=== PATIENT | female | born 1975 | race Hispanic/Latino ===

== ENCOUNTER → 2018-03-13 | Outpatient (CLI) | payer SELFPAY | END | disposition home or self-care (01) | LOC: RAH 14:03 | PROVIDERS: ATTEND Obstetrics & Gynecology | DX: N60.02 Solitary cyst of left breast (principal); N60.01 Solitary cyst of right breast | CPT/HCPCS: 76641; 77066 ==

== ENCOUNTER → 2018-04-03 | Outpatient (CLI) | payer OTHER | END | disposition home or self-care (01) | LOC: OIH 12:40 | PROVIDERS: ATTEND Family Medicine | DX: Z13.6 Encounter for screening for cardiovascular disorders (principal) | CPT/HCPCS: 75571 ==

== ENCOUNTER 2021-12-11 09:47 | Emergency (ER) | payer BC ==
[~2021-12-11] VITALS: Ht 175.3 cm; Wt 65.8 kg
[2021-12-11 10:25] LABS: APPEARANCE,URINE CLEAR (CLEAR); BILIRUBIN,URINE NEGATIVE (NEGATIVE); COLOR,URINE LIGHT-YELLOW (YELLOW); GLUCOSE, URINE (UA) NEGATIVE (NEGATIVE); KETONES,URINE NEGATIVE (NEGATIVE); LEUKOCYTE ESTERASE ,URINE 25 Leu/uL (NEGATIVE); NITRATE,URINE NEGATIVE (NEGATIVE); OCCULT BLOOD,URINE SMALL (NEGATIVE); PROTEIN,URINE NEGATIVE (NEGATIVE); UROBILINOGEN,URINE 0.2 mg/dL (0.2-1.0)
[2021-12-11] MEDS ORDERED: FAMOTIDINE 20MG TAB PO ONE (10:30)
[2021-12-11] MEDS ORDERED: IBUPROFEN 800 MG TAB PO ONE (10:30)
[2021-12-11 10:40] LABS: HCG,QUALITATIVE URINE NEGATIVE (NEGATIVE)
[2021-12-11 10:59] LABS: BACTERIA,URINE RARE /HPF (None Seen); MUCUS,URINE RARE LPF (None Seen); SQUAMOUS EPITHELIAL CELL,UR FEW /HPF (0-2)
[2021-12-11] MEDS ORDERED: CEFTRIAXONE 2GM VIAL IJ ONE (11:30)
[2021-12-11 12:30] VITALS: BP 114/47
== END 2021-12-11 12:31 | disposition home or self-care (01) ==
LOC: EDH 09:47
DX: N39.0 Urinary tract infection, site not specified (principal); Z79.1 Long term (current) use of non-steroidal anti-inflammatories (NSAID); Z90.49 Acquired absence of other specified parts of digestive tract
CPT/HCPCS: 99284; 81001; 81025; 96372; J0696

== ENCOUNTER 2023-07-04 04:04 | Emergency (ER) | payer BC ==
[~2023-07-04] VITALS: Ht 175.3 cm; Wt 65.3 kg
[2023-07-04] MEDS: KETOROLAC 60 MG VIAL (30MG/ML) IM STA (04:44)
[2023-07-04] MEDS: TRIAMCINOLONE ACETONIDE 40 MG/ML 1ML VIAL IM ONE (04:44)
[2023-07-04] MEDS: ORPHENADRINE CITRATE 30 MG/ML ML IM STA (04:44)
[2023-07-04] MEDS ORDERED: LACT10SO85 PO (05:29)
[2023-07-04] MEDS: MAGNESIUM CITRATE 296 ML SOLUTION PO STA (05:29)
[2023-07-04 05:36] VITALS: BP 129/76; PULSE 72; RESP 18; O2SAT 99
== END 2023-07-04 05:35 | disposition home or self-care (01) ==
LOC: EDH 04:04
DX: M54.32 Sciatica, left side (principal); K59.00 Constipation, unspecified
CPT/HCPCS: 99284; 81025; 72100; 96372 ×3; J3301; J1885; J2360